=== PATIENT | female | born 1950 | race Caucasian/White ===

== ENCOUNTER 2022-08-12 18:47 | Outpatient (REF) | payer MEDICARE, SELFPAY ==
[2022-08-12 20:53] LABS: Bilirubin Negative (Negative); Blood Negative (Negative); Clarity Sl Cloudy (Clear); Glucose Negative (Negative); Ketones Negative (Negative); Leukocyte Esterase Negative (Negative); Nitrite Negative (Negative); Specific Gravity >= 1.030 (1.005-1.025); Urobilinogen 0.2 EU/dL (Up TO 0.2); pH 5.5 (5-8)
[2022-08-12 21:00] LABS: ALT 38 U/L (14-59); AST 24 U/L (15-37); Albumin 3.5 g/dL (3.4-5.0); Alkaline Phosphatase 75 U/L (46-116); BUN 27 mg/dL (7-18); Bilirubin, Total 0.3 mg/dL (0.2-1.0); CREATININE 0.7 mg/dL (0.55-1.02); Calcium 9.3 mg/dL (8.5-10.1); Calculated LDL 68 mg/dL (<100); Chloride 104 mmol/L (98-107); Cholesterol 164 mg/dL (<200); Glucose 115 mg/dL (74-106); HDL Cholesterol 70 mg/dL (40-60); Potassium 4.1 mmol/L (3.5-5.1); Sodium 141 mmol/L (136-145); Total Protein 7.8 g/dL (6.4-8.2); Triglyceride 131 mg/dL (<150)
== END 2022-08-12 18:48 | disposition home or self-care (01) ==
LOC: NCHCN 18:47
PROVIDERS: Visit Provider Nurse Practitioner Family
DX: E78.2 Mixed hyperlipidemia (principal); I10 Essential (primary) hypertension; R32 Unspecified urinary incontinence
CPT/HCPCS: 80053; 80061; 81003

== ENCOUNTER 2023-04-21 16:38 | Outpatient (REF) | payer MEDICARE, SELFPAY ==
[2023-04-21 21:25] LABS: HCT 37.4 % (36.0-46.0); HGB 12.3 g/dL (11.2-15.7); MCH 28.6 pg (27.0-33.0); MCHC 32.9 % (32.0-36.0); MCV 87 fL (80-95); MPV 12.5 fL (8.0-11.0); Platelet Count 260 10^3/uL (130-400); RDW 13.2 % (11.7-14.6); WBC 7.97 10^3/uL (4.4-10.8)
[2023-04-21 21:31] LABS: ESR 22 mm/hr (0-30)
[2023-04-22 18:03] LABS: CRP, High Sensitivity 1.09 mg/L (See Note)
== END 2023-04-21 16:39 | disposition home or self-care (01) ==
LOC: NCHCN 16:38
PROVIDERS: Visit Provider Internal Medicine
DX: R51.9 Headache, unspecified (principal)
CPT/HCPCS: 85027; 85652; 86141

== ENCOUNTER 2023-05-03 13:26 | Outpatient (REF) | payer MEDICARE, SELFPAY ==
[2023-05-03 15:45] LABS: ESR 26 mm/hr (0-30)
[2023-05-03 16:29] LABS: C-Reactive Protein 0.08 mg/dL (0.0-0.3)
== END 2023-05-03 13:27 | disposition home or self-care (01) ==
LOC: NCHCN 13:26
PROVIDERS: PCP Nurse Practitioner Family; Visit Provider Nurse Practitioner Family
DX: H92.01 Otalgia, right ear (principal)
CPT/HCPCS: 85652; 86140